=== PATIENT | male | born 1960 | race Caucasian/White ===

== ENCOUNTER 2023-05-13 15:55 | Inpatient (IN) | payer MEDICARE, SELFPAY ==
[2023-05-13] VITALS (27 sets, daily range): BP systolic 156–191; BP diastolic 67–132; PULSE 81–102; RESP 16–32; TEMP 36.9; O2SAT 93–99; BMI 41.7
--- NOTE | ~2023-05-13 | CT_ITS ---
EXAMINATION: CT brain wo con DATE: 05/13/2023 17:26 INDICATION: fall . TECHNIQUE: Computed tomography (CT) of the head was performed without intravenous contrast. The mA wa s adjusted according to patient size. Iterative reconstruction technique was employed. The dose-lengt h product was 681.00 mGy-cm. COMPARISON: None. FINDINGS: No acute intracranial hemorrhage or extra-axial fluid collection. No hydrocephalus, mass, or herniation. No acute ischemic infarct. Unremarkable dural venous sinus attenuation. No acute osseous abnormality. Old left frontal skull fracture versus postsurgical change. Likely old basal skull fracture. Partial opacification of the left sphenoid sinus, ethmoid mucosal thickening, the remaining aerated s paces are clear. Right parietal approach COUNTER CLERK shunt terminating in the right lateral ventricle. Bilateral frontal and ri ght temporoparietal encephalomalacia IMPRESSION: No acute intracranial process. Reviewed, dictated and finalized at location K.
--- NOTE | ~2023-05-13 | CT_ITS ---
EXAMINATION: CT cervical spine wo con DATE: 05/13/2023 17:26 INDICATION: fall TECHNIQUE: Computed tomography (CT) of the cervical spine was performed without intravenous contrast. Automated exposure control and iterative reconstruction technique were employed. The dose-length pro duct was 1118.40 mGy-cm. COMPARISON: 06/22/2015. FINDINGS: Vertebral Body Alignment: Intact. Reversed lordosis centered at C4. Craniocervical and atlantoaxial alignment: Moderate degenerative change. Alignment intact. Osseous structures/fracture: No evidence of a lytic or blastic process in the visualized spine. No e vidence of acute fracture. Old C2 spinous process fracture. Cervical soft tissues: The paraspinal soft tissues planes are maintained. Degenerative changes: Multilevel moderate degenerative disc disease and facet arthropathy. Multilevel severe right-sided neural foraminal narrowing. No severe central canal narrowing. IMPRESSION: No acute fracture or traumatic malalignment in the cervical spine. Reviewed, dictated and finalized at location K.
--- NOTE | ~2023-05-13 | XR_ITS ---
EXAMINATION: XR chest 1V portable Exam Date/Time: 05/13/2023 16:30 CDT HISTORY: fall?? FAMILY MEMBER THINKS PT FELL. PT POOR HISTORIAN Comparison: CT chest 03/16/2015. RESULT: Lines, tubes, and devices: None. Lungs and pleura: Streaky and patchy subsegmental bibasilar opacities, likely atelectasis/scar. Crude Tester azeem mild left costophrenic angle blunting, likely related to pleural parenchymal scarring. Cardiomediastinal silhouette: Stable. Other: No acute osseous or upper abdominal finding. IMPRESSION: No acute cardiopulmonary process. Reviewed, dictated and finalized at location K.
--- NOTE | 2023-05-13 16:20 | ED.FALL ---
HPI - Fall General Chief Complaint: Fall Stated Complaint: AMS Time Seen by Provider: 05/13/23 16:17 Source: patient and family Mode of arrival: ambulatory Limitations: no limitations History of Present Illness HPI Narrative: 62 years old white male came from home by private car with his uncle. Who is telling me that last have seen the patient was 3 to 4 days ago, his brother usually visit him daily but his brother has been out of town for few days, when he went see the patient today found him sitting on a chair, with his glasses broken, and one of the door is twisted and the toilet moved a little bit of the right side, patient denies any fall or any seizure. Patient is awake and oriented to his name and age only and this is his baseline. History of seizure, unknown living well. Related Data Home Medications Medication Instructions Recorded Confirmed acetaminophen 500 mg tablet 500 mg PO Q6H PRN 03/13/20 09/29/21 (Tylenol Extra Strength) aspirin 325 mg tablet 325 mg PO DAILY 03/13/20 09/29/21 omega-3 fatty acids 1,000 mg 1,000 mg PO DAILY 03/13/20 09/29/21 capsule (Fish Oil Concentrate) Allergies Allergy/AdvReac Type Severity Reaction Status Date / Time No Known Allergies Allergy Verified 05/13/23 16:20 Review of Systems Review of Systems: All systems reviewed & are unremarkable except as noted in HPI and below PMFSH Past Medical History Medical History Dysmetabolic syndrome Nonalcoholic steatohepatitis (PAGAN) Seizure after head injury TBI (traumatic brain injury) Family History Family History Father Family history of glaucoma Patient's father is Mother Family history of malignant neoplasm of breast in first degree relative Other Depression Social History Social History Social History: Caffeine- coffee Smoking status: Former smoker Alcohol intake: former Substance use: never Lack of Transportation: No Lack of Food: Sometimes True Current Housing: I Have Housing Concerned About Future Housing: No Difficulty Paying Gas/Electric Bills: YES Difficulty Paying for Meds: YES Currently Unemployed: YES Education: Master's Degree or Higher Difficulty w/ Childcare or Family Care: No Exam Narrative: General appearance: Well-developed, well-nourished, morbidly obese, laying down in bed not in any pain or distress Skin: Normal color, right knee abrasion anteriorly Head: Normocephalic, nontraumatic Eyes: Clear conjunctiva Wearing prescription glasses, lost left lens, ENT: Oropharynx normal, ears normal, nose normal Neck: Supple, nontender Chest and respiratory: Airway patent, no respiratory distress, no accessory muscle use Heart: Regular rate/rhythm Abdomen: Soft, nontender, no organomegaly, quiet bowel sounds Vascular: Normal peripheral pulses, normal capillary refill. Musculoskeletal: Able to move all extremities without limitation Neurologic: Alert and oriented to his name and age only, he believes that he is at [facility] Course Vital Signs Vital signs: Vital Signs Pulse Rate 96 05/13/23 16:07 Blood Pressure 188/101 H 05/13/23 16:07 Pulse Oximetry 98 05/13/23 16:07 Pulse Rate 96 05/13/23 16:07 Blood Pressure 188/101 H 05/13/23 16:07 Pulse Oximetry 98 05/13/23 16:07 MDM - Fall MDM Narrative Medical decision making narrative: Patient is 62 years old white male with history of TBI and seizure, currently on Keppra, lives alone, had a visit by his uncle today who
--- NOTE | 2023-05-13 16:24 | PC.NURSE ---
per father pt lives by himself and his brother who is his guardian checks on him regularly. when father couldnt get ahold of him today he went to his house and found at least day old groceries in his garage, found door frame messed up and toliet off floor. noted pt to have broken the frame of his eyeglasses and lens is missing. pt unsure of what happened. pt denies pain. bruising and hematoma noted to left lateral forehead, bruising to left scapula and abrasion to right knee.
[2023-05-13 17:49] LABS: Basophils Absolute Auto 0.1 K/mm3 (0.0-0.1); Basophils Percent Auto 0.5 % (0.2-1.2); Eosinophils Percent Auto 0.1 % (0-4.4); Hematocrit 45.9 % (42.0-52.0); Hemoglobin 16.6 g/dL (14.0-18.0); Immature Granulocyte Absolute 0.09 K/mm3 (0.00-0.031); Immature Granulocyte Percent A 0.7 % (0-0.5); Lymphocytes Absolute Auto 1.72 K/mm3 (0.9-3.2); Lymphocytes Percent Auto 13.5 % (18.3-44.2); Mean Corpuscular HGB Conc 36.2 g/dl (32-36); Mean Corpuscular Hemoglobin 33.6 pg (26-34); Mean Corpuscular Volume 92.9 fl (80-100); Monocytes Absolute Auto 0.7 K/mm3 (0.1-0.6); Monocytes Percent Auto 5.7 % (2.6-8.5); Neutrophils Absolute Auto 10.1 K/mm3 (1.3-6.7); Neutrophils Percent Auto 79.5 % (45.5-73.1); Platelet Count Result 210 k/mm3 (150-375); Red Blood Count 4.94 M/mm3 (4.6-6.20); Red Cell Distribution Width 11.7 % (11.5-14.5); White Blood Count 12.8 K/mm3 (4.5-10.0)
[2023-05-13 18:01] LABS: Alanine Aminotransferase 43 U/L (6-50); Albumin Level 4.4 g/dL (3.5-5.1); Alkaline Phosphatase 78 U/L (38-126); Anion Gap 9 mmol/L (8-16); Aspartate Amino Transferase 144 U/L (17-59); Bilirubin,Total 2.1 mg/dL (0.2-1.3); Blood Urea Nitrogen 11 mg/dL (9-20); Calcium 8.5 mg/dL (8.4-10.2); Carbon Dioxide 25 mmol/L (22-30); Chloride 94 mmol/L (98-107); Estimated Glomerular Filt Rate > 60; Glucose 112 mg/dL (65-110); Potassium 3.5 mmol/L (3.4-5.0); Sodium 128 mmol/L (137-145)
--- NOTE | 2023-05-13 19:47 | PC.NURSE ---
THis RN assumed care of patient. This RN took report from Adeola JEAN.
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
[2023-05-13] MEDS: levETIRAcetam 1000MG/NACL100ML 1,000 MG/100 ML BAG 400 MG IVPB (20:30)
[2023-05-13] MEDS: SODIUM CHLORIDE 0.9% IV 1,000 ML 999 ML IV CONT (20:36)
[2023-05-13 21:06] LABS: Appearance Urine Clear (Clear); Bacteria Urine None Seen /hpf; Bilirubin Urine Negative (Negative); Blood Urine 3+ (Negative); Color Urine Yellow (Yellow); Glucose Urine UA Negative (Negative); Ketones Urine 3+ mg/dL (Negative); Leukocyte Esterase Ur Negative LEU/UL (Negative); Nitrate Urine Negative (Negative); Non Pathogenic Casts 0-2; Protein Urine 1+ mg/dL (Negative); RBC Urine 0-2 /hpf (0-2); Squamous Epithelial Cell Urine None seen /hpf (Few); WBC Urine 0-5 /hpf; pH Urine 5.5 (5.0-9.0)
[2023-05-13 21:11] LABS: Add Urine Microscopic? YES
[2023-05-13] MEDS: hydrALAZINE HCL 20 MG/ML VIAL 10 MG IV PUSH (22:00)
--- NOTE | 2023-05-13 22:12 | ADMGEN ---
This patient, Mango Persaud II, was admitted to Medical Room 257-01. Patient/family oriented to hospital policies and general routines including ID bracelet, bed and alarms, visiting hours, pain management, procedures, bathroom and other care routines, personal items, smoking policy, room service/diet, and visiting hours. Information on how to activate the Rapid Response Team has been discussed. Patient/Family are encouraged to report perceived risks to care and to ask questions if they do not understand what they are told or what they should do.
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
[2023-05-14] VITALS (9 sets, daily range): BP systolic 154–180; BP diastolic 92–97; PULSE 70–108; RESP 16–21; TEMP 36.5–36.9; O2SAT 94–100
[2023-05-14] MEDS: ACETAMINOPHEN 325 MG TABLET 650 MG PO (00:32)
[2023-05-14] MEDS: HALOPERIDOL LACTATE 5 MG/ML VIAL IM (00:33)
[2023-05-14 06:01] LABS: Anion Gap 10 mmol/L (8-16); Blood Urea Nitrogen 10 mg/dL (9-20); Calcium 8.3 mg/dL (8.4-10.2); Carbon Dioxide 23 mmol/L (22-30); Chloride 98 mmol/L (98-107); Estimated CRCL calculation 112 ml/min; Estimated Glomerular Filt Rate > 60; Glucose 118 mg/dL (65-110); Potassium 3.2 mmol/L (3.4-5.0); Sodium 131 mmol/L (137-145)
[2023-05-14] MEDS: POTASSIUM CHLORIDE 20 MEQ ER TABLET 40 MEQ PO (10:11)
[2023-05-14] MEDS: SODIUM CHLORIDE 0.9% IV 1,000 ML 125 ML IV CONT (10:11)
--- NOTE | 2023-05-14 11:07 | PM.IMPN ---
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 Neuro consult. (4) Nonalcoholic steatohepatitis (PAGAN): Code(s): K75.81 - Nonalcoholic steatohepatitis (PAGAN) Status: Acute Assessment and Plan: Chronic (5) TBI (traumatic brain injury): Code(s): S06.9X9A - Unspecified intracranial injury with loss of consciousness of unspecified duration, initial encounter Status: Acute Assessment and Plan: Question seizure. Patient does have history of seizures. Neurology consult. Subjective Date/time seen: 05/14/23 11:07 Interval history: Sodium level is improved. Still little confused. Question baseline. Exam Narrative: General appearance: Well-developed, well-nourished, morbidly obese, laying down in bed not in any pain or distress Skin: Normal color, right knee abrasion anteriorly Head: Normocephalic, nontraumatic Eyes: Clear conjunctiva Wearing prescription glasses, lost left lens, ENT: Oropharynx normal, ears normal, nose normal Neck: Supple, nontender Chest and respiratory: Airway patent, no respiratory distress, no accessory muscle use Heart: Regular rate/rhythm Abdomen: Soft, nontender, no organomegaly, quiet bowel sounds Vascular: Normal peripheral pulses, normal capillary refill. Musculoskeletal: Able to move all extremities without limitation Neurologic: Alert and oriented to his name and age only, he believes that he is at [facility] Objective Data Vital Signs Vital Signs: Vital Signs - 24 hr 05/13/23 16:07 05/13/23 16:20 05/13/23 16:21 Temperature Pulse Rate 96 85 Respiratory Rate 26 H Blood Pressure 188/101 H 180/101 H Pulse Oximetry 98 94 96 Oxygen Delivery 05/13/23 16:30 05/13/23 16:31 05/13/23 16:45 Temperature Pulse Rate 84 83 87 Respiratory Rate 24 H 22 H 23 H Blood Pressure 176/105 H Pulse Oximetry 94 95 94 Oxygen Delivery 05/13/23 16:46 05/13/23 17:00 05/13/23 17:30 Temperature Pulse Rate 88 91 98 Respiratory Rate 26 H 27 H 16 Blood Pressure 174/92 H Pulse Oximetry 95 93 Oxygen Delivery 05/13/23 17:35 05/13/23 17:45 05/13/23 18:00 Temperature Pulse Rate 85 89 Respiratory Rate 24 H 27 H Blood Pressure 176/101 H Pulse Oximetry 93 95 94 Oxygen Delivery 05/13/23 18:15 05/13/23 18:21 05/13/23 18:30 Temperature Pulse Rate 88 92 87 Respiratory Rate 22 H 24 H 26 H Blood Pressure 156/69 H Pulse Oximetry 95 96 93 Oxygen Delivery 05/13/23 18:32 05/13/23 18:45 05/13/23 19:01 Temperature Pulse Rate 89 102 H 87 Respiratory Rate 20 32 H 28 H Blood Pressure 170/103 H 191/100 H Pulse Oximetry 95 95 Oxygen Delivery 05/13/23 19:16 05/13/23 19:31 05/13/23 20:16 Temperature Pulse Rate 85 86 90 Respiratory Rate 28 H 25 H 21 H Blood Pressure 180/105 H 181/107 H 158/92 H Pulse Oximetry Oxygen Delivery 05/13/23 20:46 05/13/23 21:01 05/13/23 21:16 Temperature Pulse Rate 82 83 81 Respiratory Rate 25 H 28 H 29 H Blood Pressure 185/110 H 170/98 H 182/100 H Pulse Oximetry 94 97
[2023-05-14] MEDS: hydrALAZINE HCL 20 MG/ML VIAL 10 MG IV PUSH (11:44)
--- NOTE | 2023-05-14 12:46 | PC.NURSE ---
Spoke with patient legal guardian Emre to see if he can bring in a medication list for patient. He is going to try to get list from pharmacy and bring them in later today.
--- NOTE | 2023-05-14 13:06 | WPDNEURCNPN ---
Consult date: 05/14/23 HPI: Mango Persaud II is a 62 year old male admitted to the hospital through the emergency room where he was brought by private car with his uncle who reported that he had seen the patient about 3 to 4 days ago and he went to see the patient again found him sitting on the floor with his glasses broke in and 1 of the dose or twisted and toilet moved though patient denied any fall or seizure. His medications included aspirin 325 mg daily no drug allergies documented and past history consistent with seizure after head injury that is traumatic brain injury and also history of non alcoholic steatohepatitis. Patient former smoker number alcohol intake and initial exam in the emergency room consisted him with being aware that he is at [facility] but otherwise nonfocal, initial vital signs blood pressure 188/101 pulse 96, negative x-ray chest, give CT scan of the head, and negative cervical spine CT scan. Admitted to the hospital for the complaints of change in the mental status in addition to the history of posttraumatic seizure disorder that is traumatic brain injury PMFSH Past Medical History Medical History Dysmetabolic syndrome Nonalcoholic steatohepatitis (PAGAN) Seizure after head injury TBI (traumatic brain injury) Family History Family History Father Family history of glaucoma Patient's father is Mother Family history of malignant neoplasm of breast in first degree relative Other Depression Social History Social History Social History: Caffeine- coffee Smoking status: Former smoker Alcohol intake: never Substance use: never Lack of Transportation: No Lack of Food: Sometimes True Current Housing: I Have Housing Concerned About Future Housing: No Difficulty Paying Gas/Electric Bills: YES Difficulty Paying for Meds: YES Currently Unemployed: YES Education: Master's Degree or Higher Difficulty w/ Childcare or Family Care: No Spiritual care concerns: No Meds Home Medications and Allergies Home Medications Medication Instructions Recorded Confirmed Type acetaminophen 500 mg tablet 500 mg PO Q6H PRN 03/13/20 09/29/21 History (Tylenol Extra Strength) aspirin 325 mg tablet 325 mg PO DAILY 03/13/20 09/29/21 History omega-3 fatty acids 1,000 mg 1,000 mg PO DAILY 03/13/20 09/29/21 History capsule (Fish Oil Concentrate) trazodone 50 mg tablet 50 mg PO QHS #90 tabs 09/29/21 09/29/21 Rx atorvastatin 20 mg tablet 20 mg PO DAILY #90 tabs 11/04/22 Rx latanoprost 0.005 % eye drops 1 drp EACH EYE DAILY #7.5 mL 11/04/22 Rx levetiracetam 500 mg tablet 1,000 mg PO TID #270 tabs 11/04/22 Rx sertraline 100 mg tablet 100 mg PO DAILY #90 tabs 11/04/22 Rx losartan 100 1 tablet PO BID #90 tabs 11/30/22 11/30/22 Rx mg-hydrochlorothiazide 12.5 mg tablet Allergies Allergy/AdvReac Type Severity Reaction Status Date / Time No Known Allergies Allergy Verified 05/13/23 16:20 Vital Signs Vital Signs - 24 hr 05/13/23 16:07 05/13/23 16:20 05/13/23 16:21 Temperature Pulse Rate 96 85 Respiratory Rate 26 H Blood Pressure 188/101 H 180/101 H Pulse Oximetry 98 94 96 Oxygen Delivery 05/13/23 16:30 05/13/23 16:31 05/13/23 16:45 Temperature Pulse Rate 84 83 87 Respiratory Rate 24 H 22 H 23 H Blood Pressure 176/105 H Pulse Oximetry 94 95 94 Oxygen Delivery 05/13/23 16:46 05/13/23 17:00 05/13/23 17:30 Temperature Pulse Rate 88 91 98 Respiratory Rate 26 H 27 H 16 Blood Pressure 174/92 H Pulse Oximetry 95 93 Oxygen Delivery 05/13/23 17:35 05/13/23 17:45 05/13/23 18:00 Temperature Pulse Rate 85 89 Respiratory Rate 24 H 27 H Blood Pressure 176/101 H Pulse Oximetry 93 95 94 Oxygen Delivery 05/13/23 18:15 05/13/23 18:2
--- NOTE | 2023-05-14 14:03 | WPDNEURCNPN ---
Assessment and Plan Assessment and plan (1) Altered mental status, unspecified: Qualifiers: Altered mental status type: unspecified Qualified Code(s): R41.82 - Altered mental status, unspecified Code(s): R41.82 - Altered mental status, unspecified Status: Acute (2) Obesity: Code(s): E66.9 - Obesity, unspecified Status: Acute (3) Seizure after head injury: Code(s): R56.1 - Post traumatic seizures Status: Acute (4) Nonalcoholic steatohepatitis (PAGAN): Code(s): K75.81 - Nonalcoholic steatohepatitis (PAGAN) Status: Acute Plan history of seizure disorder as per the review of the medication from the pharmacy but again with no history of being refilled properly could very well be noncompliant and could have had unwitnessed seizure will start the Keppra 1000 mg twice a day other medication will continue as such and will obtain the EEG tomorrow and further changes accordingly. Consult date: 05/14/23 HPI: Mango Persaud II is a 62 year old maleAdmitted to the hospital through the emergency room where he was brought by private car with his uncle who reported that he had seen the patient about 3 to 4 days ago and he went to see the patient again found him sitting on the floor with glasses broken and 1 of the though or of the bathroom twisted and tolerated moved though the patient denied any fall or seizure. His medications included aspirin 325 mg Gamal, drug allergies, as far as the documentation is concern in the past history but also has a history consistent with a seizure after head injury was traumatic in nature in addition the history of nonalcoholic steatosis hepatitis. Patient is a former smoker his initial exam in the Emergency Room consistent with him aware that he was at [facility] but otherwise nonfocal initial vital signs with blood pressure of 188/101 stat x-ray negative CT scan of the head negative CT of the cervical spine negative he was admitted to the hospital for further evaluation for the complaints of change in the mental status. The nurse has reviewed his medication and as per the pharmacy has not recently felt his Keppra though he was supposed to take 2 tablets of Keppra 500 mg each twice a day. PMFSH Past Medical History Medical History Dysmetabolic syndrome Nonalcoholic steatohepatitis (PAGAN) Seizure after head injury TBI (traumatic brain injury) Family History Family History Father Family history of glaucoma Patient's father is Mother Family history of malignant neoplasm of breast in first degree relative Other Depression Social History Social History Social History: Caffeine- coffee Smoking status: Former smoker Alcohol intake: never Substance use: never Lack of Transportation: No Lack of Food: Sometimes True Current Housing: I Have Housing Concerned About Future Housing: No Difficulty Paying Gas/Electric Bills: YES Difficulty Paying for Meds: YES Currently Unemployed: YES Education: Master's Degree or Higher Difficulty w/ Childcare or Family Care: No Spiritual care concerns: No Meds Home Medications and Allergies Home Medications Medication Instructions Recorded Confirmed Type acetaminophen 500 mg tablet 500 mg PO Q6H PRN 03/13/20 09/29/21 History (Tylenol Extra Strength) aspirin 325 mg tablet 325 mg PO DAILY 03/13/20 09/29/21 History omega-3 fatty acids 1,000 mg 1,000 mg PO DAILY 03/13/20 09/29/21 History capsule (Fish Oil Concentrate) trazodone 50 mg tablet 50 mg PO QHS #90 tabs 09/29/21 09/29/21 Rx atorvastatin 20 mg tablet 20 mg PO DAILY #90 tabs 11/04/22 Rx latanoprost 0.005 % eye drops 1 drp EACH EYE DAILY #7.5 mL 11/04/22 Rx levetiracetam 500 mg tablet 1,000 mg PO TID #270 tabs 11/04/22 Rx sertraline 100 mg
[2023-05-14] MEDS: LOSARTAN POTASSIUM 100 MG TABLET PO (15:13)
[2023-05-14] MEDS: ATORVASTATIN 20 MG TABLET PO (15:13)
[2023-05-14] MEDS: hydroCHLOROthiazide 12.5 MG CAPSULE PO (15:13)
[2023-05-14] MEDS: levETIRAcetam 500 MG TABLET 1000 MG PO (18:09)
[2023-05-15] VITALS (11 sets, daily range): BP systolic 141–167; BP diastolic 81–96; PULSE 82–128; RESP 18–20; TEMP 36.4–36.8; O2SAT 94–96
[2023-05-15] MEDS: hydroCHLOROthiazide 12.5 MG CAPSULE PO (08:33)
[2023-05-15] MEDS: ATORVASTATIN 20 MG TABLET PO (08:33)
[2023-05-15] MEDS: levETIRAcetam 500 MG TABLET 1000 MG PO ×2 (08:33→17:07)
[2023-05-15] MEDS: LOSARTAN POTASSIUM 100 MG TABLET PO (08:33)
[2023-05-15] MEDS: SERTRALINE HCL 50 MG TABLET 100 MG PO (08:33)
[2023-05-15] MEDS: SODIUM CHLORIDE 0.9% IV 1,000 ML 125 ML IV CONT ×2 (09:30→19:57)
--- NOTE | 2023-05-15 11:11 | PM.IMPN ---
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 Neuro consult. (4) Nonalcoholic steatohepatitis (PAGAN): Code(s): K75.81 - Nonalcoholic steatohepatitis (PAGAN) Status: Acute Assessment and Plan: Chronic (5) TBI (traumatic brain injury): Code(s): S06.9X9A - Unspecified intracranial injury with loss of consciousness of unspecified duration, initial encounter Status: Acute Assessment and Plan: Question seizure. Patient does have history of seizures. Neurology consult. Subjective Date/time seen: 05/15/23 11:11 Interval history: no complaints Exam Narrative: General appearance: Well-developed, well-nourished, morbidly obese, laying down in bed not in any pain or distress Skin: Normal color, right knee abrasion anteriorly Head: Normocephalic, nontraumatic Eyes: Clear conjunctiva Wearing prescription glasses, lost left lens, ENT: Oropharynx normal, ears normal, nose normal Neck: Supple, nontender Chest and respiratory: Airway patent, no respiratory distress, no accessory muscle use Heart: Regular rate/rhythm Abdomen: Soft, nontender, no organomegaly, quiet bowel sounds Vascular: Normal peripheral pulses, normal capillary refill. Musculoskeletal: Able to move all extremities without limitation Neurologic: Alert and oriented to his name and age only, he believes that he is at [facility] Objective Data Vital Signs Vital Signs: Vital Signs - 24 hr 05/14/23 12:00 05/14/23 13:36 05/14/23 16:00 Temperature 97.7 F Pulse Rate 105 H 108 H 87 Respiratory Rate 20 Blood Pressure 154/92 H Pulse Oximetry 95 05/14/23 20:00 05/14/23 23:48 07/31/23 00:00 Temperature 98 F 98.3 F Pulse Rate 78 84 88 Respiratory Rate 18 21 H Blood Pressure 162/97 H 164/92 H Pulse Oximetry 98 94 05/15/23 03:52 05/15/23 04:00 05/15/23 08:56 Temperature 98.3 F 98.0 F Pulse Rate 87 90 87 Respiratory Rate 19 18 Blood Pressure 167/92 H 162/96 H Pulse Oximetry 96 95 Intake/Output Intake/Output: Intake & Output 05/12/23 05/13/23 05/14/23 05/15/23 23:59 23:59 23:59 23:59 Intake Total 1100 1160 300 Output Total 250 Balance 1100 910 300 Meds/Results Medications: Active Medications Generic Name Dose Route Start Last Admin Trade Name Rovertoq PRN Reason Stop Dose Admin Acetaminophen 650 mg 05/13/23 20:04 05/14/23 00:32 Acetaminophen 325 Mg Tablet PO 650 mg Q4H PRN Administration Mild Pain (1-3) or Fever Atorvastatin Calcium 20 mg 05/14/23 14:25 05/15/23 08:33 Atorvastatin 20 Mg Tablet PO 20 mg DAILY ESME Administration Hydrochlorothiazide 12.5 mg 05/14/23 14:25 05/15/23 08:33 Hydrochlorothiazide 12.5 Mg Capsule PO 12.5 mg QAM ESME Administration Sodium Chloride 1,000 mls @ 125 mls/hr 05/13/23 20:05 05/14/23 22:36 Normal Saline Iv IV CONT 0 mls/hr .Q8H ESME Infusion Levetiracetam 1,000 mg 05/14/23 17:00 05/15/23 08:33 Levetiracetam 500 Mg Tablet PO 1,000 mg BID ESME Administration Lorazepam 1 mg 05/14/23 14:15 Loraz
[2023-05-16] VITALS: BP 148/72; PULSE 80; PULSE 84; RESP 20; TEMP 36.4; O2SAT 94
[2023-05-16 04:00] VITALS: BP 139/82; PULSE 86; RESP 20; TEMP 36.7; O2SAT 91
[2023-05-16] MEDS: SODIUM CHLORIDE 0.9% IV 1,000 ML 125 ML IV CONT (06:51)
[2023-05-16 08:04] VITALS: PULSE 79
[2023-05-16] MEDS: levETIRAcetam 500 MG TABLET 1000 MG PO (09:10)
[2023-05-16] MEDS: ATORVASTATIN 20 MG TABLET PO (09:10)
[2023-05-16] MEDS: SERTRALINE HCL 50 MG TABLET 100 MG PO (09:10)
[2023-05-16] MEDS: LOSARTAN POTASSIUM 100 MG TABLET PO (09:10)
[2023-05-16] MEDS: hydroCHLOROthiazide 12.5 MG CAPSULE PO (09:10)
[2023-05-16 09:20] VITALS: RESP 20; O2SAT 93
--- NOTE | 2023-05-16 10:47 | PM.DS ---
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 Neuro consult. (4) Nonalcoholic steatohepatitis (PAGAN): Code(s): K75.81 - Nonalcoholic steatohepatitis (PAGAN) Status: Acute Assessment and Plan: Chronic (5) TBI (traumatic brain injury): Code(s): S06.9X9A - Unspecified intracranial injury with loss of consciousness of unspecified duration, initial encounter Status: Acute Assessment and Plan: Question seizure. Patient does have history of seizures. Neurology consult. DS: Summary Hospital Course Hospital Course: Admitted for ams, likely related to seizure. Has hx of noncompliance. Neuro consulted during hospitalization and will need to fu with neuro. Continue home anti seizure meds. Patient wants to be dc to home. Fu pcp and neuro. Time Spent with Patient Time attestation: Total time spent providing and/or coordinating discharge services: Exam Narrative: General appearance: Well-developed, well-nourished, morbidly obese, laying down in bed not in any pain or distress Skin: Normal color, right knee abrasion anteriorly Head: Normocephalic, nontraumatic Eyes: Clear conjunctiva Wearing prescription glasses, lost left lens, ENT: Oropharynx normal, ears normal, nose normal Neck: Supple, nontender Chest and respiratory: Airway patent, no respiratory distress, no accessory muscle use Heart: Regular rate/rhythm Abdomen: Soft, nontender, no organomegaly, quiet bowel sounds Vascular: Normal peripheral pulses, normal capillary refill. Musculoskeletal: Able to move all extremities without limitation Neurologic: Alert and oriented to his name and age only, he believes that he is at [facility] Discharge Plan Discharge Attending physician on discharge: Micheal Resendez Consulting providers: Anthony Antunez Discharging Clinician: Micheal Resendez Patient Disposition: Home, Self-Care Activity: as tolerated Diet: as tolerated Patient Instructions: Antibiotic Form Stand Alone Forms: General Discharge Information Follow-up/Referrals: Micheal Nelson MD [Primary Care Provider] - Anthony Antunez MD [Physician] - Discharge Medications: New levetiracetam [Keppra] 500 mg Tablet 1,000 mg PO BID 30 Days Qty: 120 0RF Continued aspirin 325 mg tablet 325 mg PO DAILY acetaminophen [Tylenol Extra Strength] 500 mg tablet 500 mg PO Q6H PRN omega-3 fatty acids [Fish Oil Concentrate] 1,000 mg capsule 1,000 mg PO DAILY trazodone 50 mg tablet 50 mg PO QHS Qty: 90 1RF losartan-hydrochlorothiazide 100-12.5 mg tablet 1 tablet PO BID Qty: 90 3RF atorvastatin 20 mg tablet 20 mg PO DAILY Qty: 90 3RF latanoprost 0.005 % drops 1 drp EACH EYE DAILY Qty: 7.5 3RF sertraline 100 mg tablet 100 mg PO DAILY Qty: 90 3RF Discontinued levetiracetam 500 mg tablet 1,000 mg PO TID Qty: 270 3RF Date of admission: 05/15/23 10:49 Primary Care Prov
--- NOTE | 2023-05-16 11:13 | WPDNEUROLOGY ---
Neurology EEG Report General Information Date of Study: 06/15/23 TEST eeg DIAGNOSIS possible seizures CONDITION OF RECORDING drowsy and sleep EEG NUMBER [id number] CLINICAL HISTORY patient was found at home disoriented confused. Patient does have history of traumatic brain injury couple of years ago resulting in seizure disorder. EEG DESCRIPTION Background rhythm consists of low-voltage 15 to 18 hertz per 2nd beta activity admixed with poorly organized low voltage 9 to 11 hertz per 2nd alpha and multiple movement artifacts. Bilateral symmetrical sleep activity seen during sleep. 2 to 3 hertz per 2nd medium voltage delta activity seen intermittently somewhat more prominent on the left side. Hyperventilation not done. Photic stimulation not done. Non paroxysmal. Focal. And lateralizing. IMPRESSION Abnormal record due to the absence of normal background rhythm, and due to the presence of bihemispheric slow activity which is somewhat more prominent over the left hemisphere. Even though there is no evidence of paroxysmal activity noted during this EEG recording finding could be suggestive of underlying focal structural lesion with the possibility of focal seizure. Clinical correlation recommended.
[2023-05-16 11:25] VITALS: BP 148/81; PULSE 81; RESP 16; TEMP 36.2; O2SAT 95
[2023-05-17 17:24] LABS: Levetiracetam Keppra 6.7 mcg/mL (6.0-46.0)
== END 2023-05-16 13:05 | disposition home or self-care (01) | DRG 101 ==
LOC: ANHED 20:26 → ANH3MEDSUR 20:57 → ANH2MED 21:41
PROVIDERS: Psychiatry & Neurology Neurology; Admitting Provider Internal Medicine; Emergency Provider Emergency Medicine; PCP Family Medicine; Visit Provider Chiropractor
DX: R56.1 Post traumatic seizures (principal); E87.1 Hypo-osmolality and hyponatremia; Z68.41 Body mass index [BMI] 40.0-44.9, adult; K75.81 Nonalcoholic steatohepatitis (NASH); E66.01 Morbid (severe) obesity due to excess calories; E88.81 Metabolic syndrome and other insulin resistance; Z91.199 Patient's noncompliance with other medical treatment and regimen due to unspecified reason; Z87.820 Personal history of traumatic brain injury; Z87.891 Personal history of nicotine dependence
CPT/HCPCS: 36415; 70450; 71045; 72125; 80048; 80053; 80177; 81001; 85025; 95816; 96361; 96365; 96372; 96375; 96376; 99285; A9270; G0378; J0360; J1630; J1953; J7030

== ENCOUNTER → 2023-06-12 12:46 | Outpatient (CLI) | payer MEDICARE, SELFPAY ==
--- NOTE | ~2023-06-12 | CT_ITS ---
EXAMINATION: CT abdomen pelvis wo con DATE: 06/12/2023 14:09 INDICATION: Reducible incisional hernia TECHNIQUE: Computed tomography (CT) of the abdomen and pelvis was performed without intravenous contr ast. Omnipaque oral contrast material was administered per request of referring physician. Automated exposure control and iterative reconstruction technique were employed. Exam dose: 1160.85 mGy-cm tot al exam DLP. COMPARISON: None. FINDINGS: There is bilateral posterior basilar discoid atelectasis or scarring, minimal on the left, prominent on the right. Normal heart size. No pericardial or pleural effusion. The liver, gallbladder, bile ducts, pancreas, pancreatic duct and spleen are unremarkable on this delacruz ited noncontrast examination. Normal morphology of the adrenal glands. No renal mass lesion or urinary tract calculus or hydroureteronephrosis. Mild bilateral fat containing inguinal hernias. The prostate gland and urinary bladder appear unremar kable. There is atherosclerotic calcification but normal caliber of the abdominal aorta and iliac and femora l arteries. IVC filter below the level of the renal veins. No intraperitoneal or retroperitoneal or pelvic mass lesion or adenopathy or ascites. There is minimal diverticulosis of the colon. No bowel obstruction, bowel wall thickening, pneumatosi s or intraperitoneal free air is detected. The appendix is not detected. There is a small left parasagittal fat-containing ventral abdominal wall hernia, ventral wall defect measuring approximately 2 cm wide. There is a 2.5 cm wide fat containing umbilical hernia. Mild to moderate likely chronic fracture deformities of T8 and T9. Severe degenerative disc disease of L5-S1. IMPRESSION: Small supraumbilical and umbilical fat containing hernias IVC filter Mild bilateral inguinal fat containing hernias Minimal colonic diverticulosis Chronic T8 and T9 fracture deformities Reviewed, dictated and finalized at [facility]. Reviewed, dictated and finalized at [facility].
== END ==
PROVIDERS: PCP Surgery; Visit Provider Surgery
DX: K43.2 Incisional hernia without obstruction or gangrene (principal); K57.30 Diverticulosis of large intestine without perforation or abscess without bleeding; K42.9 Umbilical hernia without obstruction or gangrene
CPT/HCPCS: 74176

== ENCOUNTER 2023-11-30 12:12 | Outpatient (CLI) | payer MEDICARE, SELFPAY ==
--- NOTE | 2023-11-30 12:30 | ECG_ITS ---
Measurements Intervals [place] Rate: 65 P: 23 CA: 155 QRS: -52 QRSD: 123 T: 92 QT: 416 QTc: 434 Interpretive Statements SINUS RHYTHM LEFT ANTERIOR FASCICULAR BLOCK [QRS AXIS <= -45, QR IN I, RS IN II] PROBABLE LATERAL MYOCARDIAL INFARCTION [35 ms Q WAVE IN I/aVL/V5/V6], OF INDETERMINATE AGE ABNORMAL ECG NO PREVIOUS ECG AVAILABLE FOR COMPARISON Electronically Signed On 11-30-2023 12:43:01 [employer] by Bjorn Carrion M.D.
[2023-11-30 13:23] LABS: Anion Gap 5 mmol/L (8-16); Blood Urea Nitrogen 16 mg/dL (9-20); Calcium 9.4 mg/dL (8.4-10.2); Carbon Dioxide 31 mmol/L (22-30); Chloride 101 mmol/L (98-107); Estimated Glomerular Filt Rate > 60; Glucose 107 mg/dL (65-110); Potassium 4.3 mmol/L (3.4-5.0); Sodium 137 mmol/L (137-145)
== END 2023-11-30 12:13 | disposition home or self-care (01) ==
LOC: ANHSURGERY 12:21
PROVIDERS: Anesthesiology; PCP Family Medicine; Visit Provider Surgery
DX: E87.6 Hypokalemia (principal); I10 Essential (primary) hypertension; Z01.818 Encounter for other preprocedural examination; R94.31 Abnormal electrocardiogram [ECG] [EKG]
CPT/HCPCS: 36415; 80048; 93005

== ENCOUNTER 2023-12-25 01:56 | Day surgery (SDC) | payer MEDICARE, SELFPAY ==
--- NOTE | 2023-11-24 16:03 | SUR.PREOP ---
Addendum entered by Claudia Manuel RN 12/18/23 15:16: PT TO ARRIVE AT 0730 ON 12/25/23 FOR SURGERY AT 0930. LAST DOSE OF VITAMINS/SUPPLEMENTS 12/21/23. PT HAS SWITCHED TO 81MG ASPIRIN OF 12/18/23. Original Note: Report to the Outpatient Waiting Room, entrance under the green pavilion located off [facility], at time 1000 on date 12/04/23. Planned Procedure Time: 1200. Time changes happen often and if your time is changed the preop area will call you the afternoon before. - You and your visitor will be asked to self-screen and do not enter if you have any COVID symptoms. - A mask is optional within the hospital at this time. Patients may have clear liquids (water, carbonated beverages, clear teas, apple juice) until 3 hours prior to surgery with a maximum of 20 ounces. - NO CLEAR LIQUIDS AFTER 0900 - No food from midnight until time of surgery - Infants may have breast milk until 4 hours before surgery, formula 6 hours prior to surgery. - Children will be allowed to drink immediately following surgery. If applicable, please bring a bottle or sippy cup to assist with drinking. Juice, water, soda, and popsicles are readily available. For infants on formula, please bring formula the day of surgery. Pacifiers are allowed. Take the following medications with a SIP of water the morning of surgery: KEPPRA, SERTRALINE, ACETAMINOPHEN DO NOT STOP ANY OF YOUR OTHER PRESCRIPTION MEDICATIONS PRIOR TO SURGERY ?EXCEPT THE FOLLOWING Medications to discontinue per physician DECREASE ASPIRIN TO 81MG 11/27/23, STOP FISH OIL & SUPPLEMENTS 12/01/23 Please no make-up, nail [place] citizen, hairspray, perfume, deodorant, or body powder the day of surgery. No jewelry (including any body piercings) or valuables the day of surgery, leave them at home. Please take a shower or bath the night before, or the morning of, surgery with an antibacterial soap. Wear comfortable, loose fitting clothing. Children are encouraged to wear pajamas. - Jewelry must be removed prior to entering the operating room. Rings and piercings that are not removed may be cut off. - The hospital will not accept responsibility for valuables. - Please leave all valuables, including medications, at home the day of surgery. If you are going home after surgery, a licensed dump truck driver must drive you home. - NO public transportation without another adult if you receive anesthesia. - We recommend that an adult stay with you for 24 hours following discharge. - We also recommend that you do not drive, make important decision, drink alcoholic beverages, or take any drugs that were not prescribed by your health care provider for at least 24 hours after your discharge time. For Pediatric surgeries, we recommend two adults accompany the child home. Follow any additional instructions given to you from your surgeon. If you or anyone in your household have experienced Covid symptoms in the past week, please notify your surgeon or the nurse liaison at the phone number below for possible testing. Telephone instructions given to STEPHANY BORJAS and asked if any additional questions and then verbalized understanding. Patient advised to call surgeon office or pre surgery nurse liaison [phone] if any additional questions.
[2023-11-24 16:17] VITALS: BMI 34.2
--- NOTE | 2023-12-18 15:16 | PC.NURSE ---
Emre, pt brother/POA, states no changes in medications or health history since initial interview. New pre-op instructions reviewed. Denies further questions at this time.
[2023-12-25] VITALS (8 sets, daily range): BP systolic 134–172; BP diastolic 86–99; PULSE 70–89; RESP 14–16; TEMP 36.3–36.7; O2SAT 93–100
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
--- NOTE | 2023-12-25 07:42 | WPDHPUPDATE1 ---
History and Physical Update Update Date/Time: 12/25/23 07:42 History and Physical has been reviewed, including an updated exam of the patient. There are NO changes in the patient's condition. Risks, benefits, and alternatives have been discussed and questions answered. Patient agrees to proceed with procedure.
[2023-12-25] MEDS: LACTATED RINGERS 1,000 ML 30 ML IV CONT ×2 (07:45→12:12)
[2023-12-25] MEDS: ACETAMINOPHEN 500 MG TABLET 1000 MG PO (08:35)
[2023-12-25] MEDS: KETOROLAC 15 MG/ML VIAL (*BKC) IV PUSH (08:36)
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
[2023-12-25] MEDS: ceFAZolin 1 GM/NS 50 ML 1 GM/50 ML BAG IVPB (10:37)
[2023-12-25] MEDS: ceFAZolin 2 GM/D5W 50 ML 2 GM/50 ML BAG IVPB (10:37)
[2023-12-25] MEDS: LIDO 1%/EPINEPHRINE 1:100,000 20 ML VIAL INFILTRATE (11:01)
[2023-12-25] MEDS: BUPivacaine HCL 0.5% 10 ML AMP 20 ML INFILTRATE (11:02)
--- NOTE | 2023-12-28 17:41 | W.PM.PROC2 ---
Procedure Note - Detailed Date of Procedure 12/25/23 Pre-op Diagnosis Reducible umbilical hernia. Post-op Diagnosis Other ( Umbilical defect measured 3.5cm in diameter.) Procedure Performed Open periumbilical ventral hernia repair with Bard Ventralex mesh ( 6.4cm [place] ). Surgeon Faustino Ibrahim MD Anesthesia General Indications Patient is a 63-year-old gentleman who had a traumatic brain injury so many years ago. He also had a laparotomy at the time of his trauma which resulted the midline incision now subsequent incisional hernia. He has a fairly large defect in the epigastric region the abdomen however he has a TELE[employer] shunt in place and the catheter around very near the fascial defect. Repair of the epigastric hernia would require likely revision of the TELECOMM[employer]ICATION[employer]ER shunt. 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 the patient was having really no complaints to the epigastric incisional hernia but he was having more complaints of pain in the periumbilical region where he had a 2nd reducible hernia. He presents now for repair of the reducible periumbilical hernia and the epigastric hernia with just be observed. Findings Patient had a reducible periumbilical ventral hernia with a defect measuring 3.5cm. Coming out of the hernia defect was small amount of omentum and preperitoneal fat. No bowel was noted to be within the hernia sac. After reduction of the contents of the hernia I chose a circular piece of Bard Ventralex ST mesh measuring 6.4cm in diameter for the repair of the hernia defect. Description of Procedure After informed consent was obtained from the patient's legal guardian which is his brother, the patient was brought to the operating room was placed supine position on the operating table and general endotracheal anesthesia was administered. The abdomen was then prepped and draped usual sterile fashion. time-out was then performed correctly identifying the patient as well as the procedure to be performed verifying the site of the hernia repair. He was given perioperative IV antibiotics. Then started by making a small curved incision in the lower margin of the umbilical fold and also proceeded to resect a portion of the redundant umbilical skin. This is done sharply with a scalpel and then the skin was excised utilizing electrocautery. It was passed off table and discarded. I then opened the hernia sac and dissected down to the fascial edges. The small amount of omentum noted within the hernia sac was completely viable. I then proceeded to disconnect the umbilical stalk from the hernia sac with electrocautery and then resected the hernia sac. It was sent to pathology. I then proceeded to sweep my finger underneath the anterior abdominal wall through the defect and there were no adhesions of bowel in this area. A sweep my finger in all directions about 5cm in so I decided to repair the hernia with a piece of Bard Ventralex ST mesh measuring 6.4cm in diameter. The mesh was placed through the defect intraperitoneally and then the mesh straps were pulled up to approximate the mesh to the undersurface of the anterior abdominal wall. Made sure there was no omentum or bowel incarcerated between the mesh in the undersurface anterior abdominal wall. Then proceeded to secure the mesh in place with placement of interrupted 0 Ethibond sutures placed transfascially fashion through the mesh straps as well as superior inferior to circumferentially fixate the mesh to the fascia. I then the mesh in the incision well. No bleeding was noted. I then cut away the excess portions of the strap at the fascial level. I then closed the subcutaneous tissues and the attenuated fascia over the top of the mesh with interrupted 2-0 Vicryl sutures. The dermis of the umbilicus was then tacked down to the deep fascial structures with a 3-0 Vicryl suture to recreate inver
== END 2023-12-25 14:20 | disposition home or self-care (01) ==
PROVIDERS: PCP Family Medicine; Visit Provider Surgery
PROC: 0WQF0ZZ Repair Abdominal Wall, Open Approach (ICD-10-PCS; CPT 49593; principal; 2023-12-25 09:30)
DX: K42.9 Umbilical hernia without obstruction or gangrene (principal); K43.9 Ventral hernia without obstruction or gangrene; Z87.820 Personal history of traumatic brain injury; Z98.2 Presence of cerebrospinal fluid drainage device; K75.81 Nonalcoholic steatohepatitis (NASH); Z79.82 Long term (current) use of aspirin; E66.9 Obesity, unspecified; Z68.37 Body mass index [BMI] 37.0-37.9, adult; Z87.891 Personal history of nicotine dependence
CPT/HCPCS: 49593; 36415; 80048; 88302; 93005; A9270; C1781; J0330; J0690; J1100; J1170; J1885; J2250; J2405; J3010; J7120